=== PATIENT | male | born 1945 | race Caucasian/White ===

== ENCOUNTER → 2022-05-31 13:27 | Outpatient (BNVA) | payer MEDICARE, SELFPAY | PROVIDERS: PCP Nurse Practitioner Family; Visit Provider Nurse Practitioner Family | DX: Z20.822 Contact with and (suspected) exposure to COVID-19 (principal); J22 Unspecified acute lower respiratory infection | CPT/HCPCS: 71046; 87426 ==

== ENCOUNTER → 2022-06-10 10:10 | Outpatient (BNVA) | payer MEDICARE, SELFPAY | PROVIDERS: PCP Nurse Practitioner Family; Visit Provider Family Medicine | DX: R91.8 Other nonspecific abnormal finding of lung field (principal) | CPT/HCPCS: 87400; 87426 ==

== ENCOUNTER 2024-03-21 23:56 | Emergency (ER) | payer MEDICARE, SELFPAY ==
[2024-03-21 23:58] VITALS: BP 158/64; PULSE 97; RESP 18; TEMP 36.7; O2SAT 90; BMI 25.0
[2024-03-22] VITALS (9 sets, daily range): BP systolic 117–155; BP diastolic 58–75; PULSE 82–112; RESP 13–20; TEMP 36.7; O2SAT 91–93
--- NOTE | 2024-03-22 00:05 | ECG_ITS ---
[facility] Test Date: 2024-03-22 Pat Name: Hay Salmon Department: Room: Gender: Male [employer] Machine: : [id number] Requested By: Ricky Marshall Order Number: [id number] Juan MD: Jamie Hopson M.D. Measurements Intervals [place] Rate: 86 P: 85 VA: 168 QRS: 71 QRSD: 89 T: 82 QT: 353 QTc: 423 Interpretive Statements SINUS RHYTHM INDETERMINATE AXIS POSSIBLE RIGHT VENTRICULAR CONDUCTION DELAY [RSR (QR) IN V1/V2] No previous ECG available for comparison Electronically Signed On 03-22-2024 12:03:19 CDT by Jamie Hopson M.D. [email or web address]
--- NOTE | 2024-03-22 00:05 | XRR_ITS ---
PROCEDURE INFORMATION: Exam: XR Chest Exam date and time: 03/22/2024 12:09 AM Age: 79 years old Clinical indication: Chest pressure; Patient HX: C/O chest pain; Additional info: Cp TECHNIQUE: Imaging protocol: Radiologic exam of the chest. Views: 1 view. COMPARISON: CR XR chest 2V* [id number] 05/31/2022 1:31 PM FINDINGS: Lungs: Irregular opacities in the right lung base medially. Pleural spaces: Unremarkable. No pleural effusion. No pneumothorax. Heart/Mediastinum: Unremarkable. No cardiomegaly. Bones/joints: Unremarkable. XR/XR chest 1V portable [id number] IMPRESSION: Irregular opacities in the right lung base medially.
[2024-03-22 00:23] LABS: Basophils # 0.1 10^3/uL (0.0-0.1); Basophils % 0.3 %; Eosinophils # 0.1 10^3/uL (0.0-0.8); Eosinophils % 0.7 %; Hematocrit 50.4 % (37-53); Lymphocytes # 1.8 10^3/uL (0.8-4.8); Mean Corpuscular HGB Conc 33.1 g/dL (30-55); Mean Corpuscular Hemoglobin 31.3 pg (27-33); Mean Corpuscular Volume 94.6 fl (82-101); Mean Platelet Volume 9.9 fL (7.4-10.4); Monocytes # 0.5 10^3/uL (0.2-0.9); Monocytes % 3.5 %; Neutrophils # 12.51 10^3/uL (1.8-7.7); Neutrophils % 83.1 %; Nucleated Red Blood Cells % 0 %; Platelet Count 306 10^3/cmm (157-399); Red Blood Count 5.33 10^6/uL (3.85-5.65); Red Cell Distribution Width 13.4 % (12.1-15.1); White Blood Count 15.06 10^3/uL (3.29-11.43)
--- NOTE | 2024-03-22 00:38 | CTR_ITS ---
PROCEDURE INFORMATION: Exam: CT Abdomen And Pelvis With Contrast Exam date and time: 03/22/2024 1:02 AM Age: 79 years old Clinical indication: Abdominal pain; Localized; Right lower quadrant (rlq); Patient HX: C/O rlq pain TECHNIQUE: Imaging protocol: Computed tomography of the abdomen and pelvis with contrast. Radiation optimization: All CT scans at this facility use at least one of these dose optimization techniques: automated exposure control; mA and/or kV adjustment per patient size (includes targeted exams where dose is matched to clinical indication); or iterative reconstruction. Contrast material: OMNI 350; Contrast volume: 100 ml; Contrast route: INTRAVENOUS (IV); COMPARISON: CR (CHEST, ) 03/22/2024 12:09 AM RADIATION DOSE METRICS: Total DLP (mGy-cm): 333.86 FINDINGS: Lungs: Irregular opacities in the right lung base. Liver: Normal. No mass. Gallbladder and biliary ducts: Normal. No calcified stones. No ductal dilation. Pancreas: Normal. No ductal dilation. Spleen: Normal. No splenomegaly. Adrenal glands: Normal. No mass. Kidneys and ureters: Normal. No hydronephrosis. Stomach and bowel: Unremarkable. No obstruction. No mucosal thickening. Appendix: No evidence of appendicitis. Intraperitoneal space: Unremarkable. No free air. No significant fluid collection. Vasculature: Unremarkable. No abdominal aortic aneurysm. Lymph nodes: Unremarkable. No enlarged lymph nodes. Urinary bladder: Unremarkable as visualized. Reproductive: Unremarkable as visualized. Bones/joints: Bilateral pars defects at L5 grade 1 anterolisthesis of L5 on S1. Severe degenerative disc disease throughout the lumbar spine. Soft tissues: Unremarkable. CT/CT abdomen pelvis w con* [id number] IMPRESSION: 1. No bowel obstruction or inflammatory process associated with the bowel. 2. No free air or significant free fluid in the abdomen or pelvis. 3. No evidence of appendicitis.
[2024-03-22 00:50] LABS: Troponin(5th) Baseline 12 ng/L (0-15)
[2024-03-22 00:57] LABS: Alanine Aminotransferase 7 U/L (0-41); Albumin Level 4.5 g/dL (3.5-5.2); Alkaline Phosphatase 57 U/L (40-130); Anion Gap 16.9 (5-19); Aspartate Amino Transferase 15 U/L (0-40); Blood Urea Nitrogen 14 mg/dL (8-23); Carbon Dioxide 27 mmol/L (22-29); Chloride 104 mmol/L (98-107); Creatine Phosphokinase 64 U/L (39-308); Creatinine Clr Calc Pharmacy 52.5392; Glucose 103 mg/dL (65-115); NT Pro B Type Natriuretic Pept 434 pg/mL (0-450); Osmolality Calculated 299 mOsm/kg (285-295); Potassium 3.9 mmol/L (3.5-5.1); Sodium 144 mmol/L (136-145); Total Bilirubin 1.8 mg/dL (0.15-1.2); Total Protein 6.5 g/dL (6.6-8.7)
[2024-03-22 00:59] LABS: Bilirubin Urine Negative (Negative); Blood Urine Negative (Negative); Charge for UA Resulting for Rev; Glucose Urine UA Negative (Normal); Ketones Urine Trace (Negative); Leukocyte Esterase Urine Negative (Negative); Nitrate Urine Negative (Negative); Protein Urine Negative (Negative); Specific Gravity, Urine 1.018 (1.005-1.030); Urine Appearance Clear (CLEAR); Urine Color Yellow (Yellow); pH Urine 6.5 (5-7)
[2024-03-22 01:04] LABS: Bacteria Urine None Seen /hpf; Hyaline Casts Urine 0-4 /lpf; RBC Urine 0-2 /hpf (0-2); Squamous Epithelial Cell Urine 0-5 /hpf (0-5)
[2024-03-22] MEDS: iohexol 350 mg/mL 500 mL Btl (per mL) IV (01:05)
[2024-03-22 01:09] LABS: Lipase 91 U/L (13-60)
--- NOTE | 2024-03-22 01:16 | ED_ITS ---
HPI - Chest Pain 2 General: Chief Complaint: Chest Pain Stated Complaint: CP, generalized weakness Time Seen by Provider: 03/22/24 00:09 History of Present Illness: 79-year-old male patient who is generall y healthy. He presents with what was originally described as right-sided chest pain. He relates that his right lower quadrant pain. He says that this started around 5 PM. Some nausea, no vomiting. Mild short of breath according to his daughter. No significant cough. No sputum production. No fever. He says that he was in so much pain that he was trembling . Pain is improved currently. Related Data Previous Rx's Medication Instructions Recorded montelukast 10 mg tablet 10 mg PO DAILY #90 tabs 05/22/22 (Singulair) albuterol sulfate 2.5 mg/3 mL 2.5 mg (3 mL) inhalation QID PRN 12/13/22 (0.083 %) solution for nebulization shortness of breath or wheezing #90 mL albuterol sulfate 90 mcg/actuation 1 inh inhalation QID #8.5 grams 03/22/24 aerosol inhaler azithromycin 250 mg tablet See Rx Instructions PO .COMPLEX #6 03/22/24 (Zithromax) tabs cefdinir 300 mg capsule 300 mg PO BID #14 caps 03/22/24 Allergies Allergy/AdvReac Type Severity Reaction Status Date / Time Sulfa (Sulfonamide Allergy Mild rash Verified 03/22/24 00:02 Antibiotics) [facility] ED 2 PFSH: Medical History Lower respiratory infection Environmental and seasonal allergies Hernia Surgical History H/O basal cell carcinoma excision Patient had numerous BCC removed from left side of face and right arm. Social History Smoking and tobacco/nicotine status: never used tobacco/nicotine Second hand smoke exposure: No Alcohol intake: never Substance/Drug Use: never Physical Exam 2 Const: COMMON NORMALS: no acute distress GENERAL APPEARANCE: cooperative; not ill appearing and not frail appearing HENMT: COMMON NORMALS: normocephalic, atraumatic and Normal external nose present HEAD & SCALP: normocephalic and atraumatic FACE & SINUS: normal facial exam and face symmetric NOSE: Normal external nose present Eye: COMMON NORMALS: Equal, round and reactive pupils present and EOMs intact bilaterally PUPIL: Yes Equal, round and reactive pupils present Neck/C-Spine: GENERAL: Yes trachea midline Chest: CHEST: Yes Symmetrical chest wall rise Resp: COMMON NORMALS: normal respiratory effort, No retractions, No use of accessory muscles and clear to auscultation bilaterally AUSCULTATION: clear to auscultation bilaterally Cardio: COMMON NORMALS: regular rate and regular rhythm RATE: regular rate RHYTHM: regular rhythm GI: COMMON NORMALS: Normal to inspection, nondistended, normoactive bowel sounds present and Soft to palpation PALPATION: Yes Soft to palpation, Yes Tenderness to palpation present (GI) Details: RLQ and Yes Guarding due to palpation present (GI) Extremity: COMMON NORMALS: no pedal edema Neuro: JOLYNN COMA SCALE: document GCS findings Thompson coma scale eye opening: Spontaneous Thompson coma scale verbal response: Orientated Thompson coma scale motor response: Obey commands Jolynn coma scale total score: 15 S ENSORY EXAM: Yes extremities (intact) Psych: COMMON NORMALS: speech normal SPEECH: Yes normal speech Skin: COMMON NORMALS: no rashes or lesions noted GENERAL SKIN EXAM: no rashes or lesions noted Course 2 Vital Signs: Vital signs: Vital Signs Temperature 98.0 F 03/21/24 23:58 Pulse Rate 86 03/22/24 02:02 Respiratory Rate 18 03/22/24 02:02 Blood Pressure 127/75 03/22/24 02:02 Pulse Oximetry 92 03/22/24 02:02 Oxygen Delivery Me thod Room Air 03/22/24 00:54 MDM - Chest Pain Medical Decision Making Vitals are stable here. He is afebrile. He is awake and alert. CBC shows a leukocytosis of 15 with 83% neutrophils. CRP is only 3 however. Urinalysis is negative. Other laboratory findings are not significant, save a bilirubin of 1.8. CT does not reveal bowel obstruction, appendicitis, or other abdominal problem. It does, as does the x-ray, showed irregular opacity in the right lung base. He will be treated for pneumonia given white blood cell count, and pleuritic type pain. First doses here. Will allow discharge, given minimal change in troponin at 2 hours, EKG findings that are benign, etc. Lab Data 03/22/24 00:10 03/22/24 00:10 Radiology Impressions Chest X-Ray 03/22/24 00:05 IMPRESSION: Irregular opacities in the right lung base medially. Abdomen/Pelvis CT 03/22/24 00:38 IMPRESSION: 1. No bowel obstruction or inflammatory process associated with the bowel. 2. No free air or significant free fluid in the abdomen or pelvis. 3. No evidence of appendicitis. Laboratory Results WBC 15.06 10^3/uL (3.29-11.43) H 03/22/24 00:10 RBC 5.33 10^6/uL (3.85-5.65) 03/22/24 00:10 Hgb 16.70 g/dL (11.27-16.99) 03/22/24 00:10 Hct 50.4 % (37-53) 03/22/24 00:10 MCV 94.6 fl (82-101) 03/22/24 00:10 MCH 31.3 pg (27-33) 03/22/24 00:10 MCHC 33.1 g/dL (30-55) 03/22/24 00:10 RDW 13.4 % (12.1-15.1) 03/22/24 00:10 Plt Count 306 10^3/cmm (157-399) 03/22/24 00:10 MPV 9.9 fL (7.4-10.4) 03/22/24 00:10 Neut % (Auto) 83.1 % 03/22/24 00:10 Lymph % (Auto) 12.0 % 03/22/24 00:10 [place] % (Auto) 3.5 % 03/22/24 00:10 Eos % (Auto) 0.7 % 03/22/24 00:10 Baso % (Auto) 0.3 % 03/22/24 00:10 Neut # (Auto) 12.51 10^3/uL (1.8-7.7) H 03/22/24 00:10 Lymph # (Auto) 1.8 10^3/uL (0.8-4.8) 03/22/24 00:10 [place] # (Auto) 0.5 10^3/uL (0.2-0.9) 03/22/24 00:10 Eos # (Auto) 0.1 10^3/uL (0.0-0.8) 03/22/24 00:10 Baso # (Auto) 0.1 10^3/uL (0.0-0.1) 03/22/24 00:10 Nucleated RBC % (auto) 0 % 03/22/24 00:10 Nucleated RBCs # 0.0 /100WBC 03/22/24 00:10 Sodium 144 mmol/L (136-145) 03/22/24 00:10 Potassium 3.9 mmol/L (3.5-5.1) 03/22/24 00:10 Chloride 104 mmol/L (98-107) 03/22/24 00:10 Carbon Dioxide 27 mmol/L (22-29) 03/22/24 00:10 Anion Gap 16.9 (5-19) 03/22/24 00:10 BUN 14 mg/dL (8-23) 03/22/24 00:10 Creatinine 1.0 mg/dL (0.7-1.2) 03/22/24 00:10 GFR Calculation Not Reportable 03/22/24 00:10 Glucose 103 mg/dL (65-115) 03/22/24 00:10 Calculated Osmolality 299 mOsm/kg (285-295) H 03/22/24 00:10 Calcium 9.0 mg/dL (8.5-10.5) 03/22/24 00:10 Total Bilirubin 1.8 mg/dL (0.15-1.2) H 03/22/24 00:10 AST 15 U/L (0-40) 03/22/24 00:10 ALT 7 U/L (0-41) 03/22/24 00:10 Alkaline Phosphatase 57 U/L (40-130) 03/22/24 00:10 Creatine Kinase 64 U/L (39-308) 03/22/24 00:10 Troponin T Baseline 12 ng/L (0-15) 03/22/24 00:10 Troponin T 120 Minute 16.82 ng/L (0-15) H 03/22/24 02:01 Delta Troponin T 4.82 ABS# (0-10) 03/22/24 02:01 C-Reactive Protein 3.0 mg/L (0.0-4.9) 03/22/24 00:10 NT-Pro-B Natriuret Pep 434 pg/mL (0-450) 03/22/24 00:10 Total Protein 6.5 g/dL (6.6-8.7) L 03/22/24 00:10 Albumin 4.5 g/dL (3.5-5.2) 03/22/24 00:10 Globulin 2.0 g/dL (1.3-4.6) 03/22/24 00:10 Lipase 91 U/L (13-60) H 03/22/24 00:10 Urine Color Yellow (Yellow) 03/22/24 00:36 Urine Appearance Clear (CLEAR) 03/22/24 00:36 Urine pH 6.5 (5-7) 03/22/24 00:36 Ur Specific [place] 1.018 (1.005-1.030) 03/22/24 00:36 Urine Protein Negative (Negative) 03/22/24 00:36 Urine Glucose (UA) Negative (Normal) 03/22/24 00:36 Urine Ketones Trace (Negative) 03/22/24 00:36 Urine Blood Negative (Negative) 03/22/24 00:36 Urine Nitrate Negative (Negative) 03/22/24 00:36 Urine Bilirubin Negative (Negative) 03/22/24 00:36 Urine Urobilinogen 1.0 mg/dL (Negative) 03/22/24 00:36 Ur Leukocyte Esterase Negative (Negative) 03/22/24 00:36 Urine RBC 0-2 /hpf (0-2) 03/22/24 00:36 Urine WBC 6-10 /hpf (0-5) 03/22/24 00:36 Ur Squamous Epith Cells 0-5 /hpf (0-5) 03/22/24 00:36 Amorphous Sediment Not Reportable 03/22/24 00:36 Urine Bacteria None seen /hpf (NONE) 03/22/24 00:36 Hyaline Casts 0-4 /lpf H 03/22/24 00:36 All radiology interpretation(s) finalized by discharge Discharge Plan Discharge Patient Disposition: Home Clinical Impression: Community acquired pneumonia Condition: Stable Prescriptions: New cefdinir 300 mg capsule 300 mg PO BID Qty: 14 0RF azithromycin [Zithromax] 250 mg tablet See Rx Instructions .ROUTE .COMPLEX Qty: 6 0RF Rx Instructions: For 250 mg dose pack: take 500 mg today (day 1), then 250 mg for 4 days (days 2-5) Continued albuterol sulfate 90 mcg/actuation HFA aerosol inhaler 1 inh inhalation QID Qty: 8.5 0RF No Action montelukast [Singulair] 10 mg tablet 10 mg PO DAILY Qty: 90 1RF albuterol sulfate 2.5 mg /3 mL (0.083 %) solution for nebulization 2.5 mg inhalation QID PRN (Reason: shortness of breath or wheezing) Qty: 90 0RF Discharge Orders: Discharge ED (Routine); Ordered 03/22/24 Ordered By: Ricky Zbaala Referrals: KARLIE Aguero, SOUND SYSTEM INSTALLER [Primary Care Provider] - 1-3 days Patient Instructions: Pneumonia (ED), Opioid Safety, Pain Management Activity Restrictions/Additional Instructions: Return for significant return of pain, worsening shortness of breath, fever despite 2-3 more doses of antibiotics, other concerning symptoms. See your doctor this week. Medication as directed. Coding Level of Care Code ED Can Bander Operator for Gabo Gonzalez
[2024-03-22 02:25] LABS: Troponin 5 2HR 16.82 ng/L (0-15); Troponin 5 2HR Delta 4.82 ABS# (0-10)
[2024-03-22] MEDS: azithromycin 250 mg Tablet 500 MG PO (02:35)
[2024-03-22] MEDS: cefTRIAXone 1,000 mg SDV 1000 MG IVP (02:35)
== END 2024-03-22 03:10 | disposition home or self-care (01) ==
PROVIDERS: Emergency Provider Emergency Medicine; PCP Nurse Practitioner Family
DX: J18.9 Pneumonia, unspecified organism (principal)
CPT/HCPCS: 36415; 71045; 74177; 80053; 81003; 81015; 82550; 83690; 83880; 84484; 85025; 86140; 87040; 93005; 96374; 99285; J0696; Q0144; Q9967